=== PATIENT | female | born 1980 ===

== ENCOUNTER 2017-06-01 09:17 | Emergency (ER) | payer OTHER, SELFPAY ==
[2017-06-01 09:32] VITALS: BMI 29.2
[2017-06-01 09:33] VITALS: BP 127/70; PULSE 107; RESP 16; TEMP 98.6; O2SAT 100
[2017-06-01] MEDS ORDERED: Sodium Chloride 0.9% 1,000 ML IV STA (10:09)
--- NOTE | 2017-06-01 10:47 | ED PDOC ---
HPI: Abdomen Time Seen by Provider: 06/01/17 09:55 Chief Complaint (Nursing): Abdominal Pain Chief Complaint (Provider): Abdominal Pain History Per: Patient History/Exam Limitations: no limitations Current Symptoms Are (Timing): Still Present Additional Complaint(s): 37 year old female presents to the emergency department with a complaint of a right lower abdominal pain that is non radiating that started last night, 2017, around 2200. Describe pain was severe at first and slowly got getter although today around 7am pain returned. Reports taking Tylenol with the relief of pain with nausea and chills. States she feels like she wants to defecate but nothing comes out when she tries. Denies fever, diarrhea, urinary symptoms or loss of appetite. Patient is and last known menstrual period was on 2016. Past Medical History Reviewed: Historical Data, Nursing Documentation, Vital Signs Vital Signs: Last Vital Signs Temp 98.6 F 06/01/17 09:32 Pulse 107 H 06/01/17 09:32 Resp 16 06/01/17 09:32 BP 127/70 06/01/17 09:32 Pulse Ox 100 06/01/17 14:05 - Medical History PMH: Migraine - Surgical History Surgical History: Other surgeries: IUD in place - Family History Family History: States: No Known Family Hx - Social History Current smoker - smoking cessation education provided: No Alcohol: Occasional Drugs: Denies - Home Medications Home Medications: Ambulatory Orders Medication Instructions Recorded No122/Iron/Folic Acid 1 each PO DAILY #30 tablet 12/04/15 [ Multi Tablet] Ibuprofen [Motrin] 600 mg PO Q6 PRN #30 tab 06/16/16 oxyCODONE/Acetaminophen [Percocet 1 tab PO Q6 PRN #30 tab 06/16/16 5/325 mg Tab] Famotidine [Pepcid] 20 mg PO BID #28 tab 06/01/17 Naproxen [Naprosyn] 500 mg PO BID PRN #20 tablet 06/01/17 - Allergies Allergies/Adverse Reactions: Allergies Allergy/AdvReac Type Severity Reaction Status Date / Time No Known Allergies Allergy Verified 12/03/15 22:39 Review of Systems ROS Statement: Except As Marked, All Systems Reviewed And Found Negative (As per HPI, otherwise negative) Constitutional: Positive for: Chills. Negative for: Fever, Other (loss of appetite) Gastrointestinal: Positive for: Nausea, Abdominal Pain (RLQ). Negative for: Diarrhea Genitourinary Female: Negative for: Dysuria, Frequency, Incontinence, Hematuria Physical Exam - Reviewed Nursing Documentation Reviewed: Yes Vital Signs Reviewed: Yes - Physical Exam Appears: Positive for: Non-toxic, Uncomfortable (Moderate discomfort) Head Exam: Positive for: NORMAL INSPECTION, NORMOCEPHALIC Skin: Positive for: Normal Color, Warm, Dry Neck: Positive for: Normal, Supple Cardiovascular/Chest: Positive for: Regular Rate, Rhythm (Normal S1 S2) Respiratory: Positive for: Normal Breath Sounds. Negative for: Accessory Muscle Use, Respiratory Distress Gastrointestinal/Abdominal: Positive for: Soft, Tenderness (RLQ with mild tenderness to the LLQ). Negative for: Distended, Rebound Back: Positive for: R CVA Tenderness. Negative for: Normal Inspection, L CVA Tenderness Extremity: Positive for: Normal ROM. Negative for: Pedal Edema Neurologic/Psych: Positive for: Alert, Oriented (x3) - Laboratory Results Result Diagrams: 06/01/17 10:52 06/01/17 10:52 - ECG O2 Sat by Pulse Oximetry: 100 (RA) Pulse Ox Interpretation: Normal Medical Decision Making Medical Decision Making: Time: 1006 Initial Impression: Right lower quadrant differential diagnosis include urinary tract infection (UTI), tubo-ovarian, and appendicitis Initial Plan: --CMP --Urine DIP & Preg --CBC w/ diff --Toradol 30 mg IV --Sodium Chloride 1L IV --Urinalysis --Pelvis US --Reevaluation Time: 1208 --Pelvis US FINDINGS: Examination limited by shadowing. UTERUS: Measures 10.7 x 4.0 x 5.1 cm. Anteverted. ENDOMETRIUM: Measures 7 mm in diameter. Limited visualization of the IUD appears in satisfactory position. CERVIX: No cervical abnormality identified. RIGHT OVARY: Measures 5.0 x 3.9 x 4.9 cm. Blood flow is demonstrated. 2.9 x 2.4 x 3.2 cm right ovarian follicle/cyst. LEFT OVARY: Measures 3.9 x 2.7 x 4.7 cm cm. Blood flow is demonstrated. FREE FLUID: No significant free fluid noted. OTHER FINDINGS: None. IMPRESSION: Limited visualization of the IUD appears in satisfactory position. 2.9 x 2.4 x 3.2 cm right ovarian follicle/cyst. Scribe~Attestation: Documented by Yamilet Pearson, acting as a scribe for Allison Velasquez MD. Provider Scribe~Attestation: All medical record entries made by the Scribe were at my direction and personally dictated by me. I have reviewed the chart and agree that the record accurately reflects my personal performance of the history, physical exam, medical decision making, and the department course for this patient. I have also personally directed, reviewed, and agree with the discharge instructions and disposition. Disposition - Clinical Impression Clinical Impression: Right ovarian cyst - Patient ED Disposition Is Patient to be Admitted: No Doctor Will See Patient In The: Office Counseled Patient/Family Regarding: Diagnosis, Need For Followup, Rx Given - Disposition Disposition: Routine/Home Disposition Time: 14:08 Condition: IMPROVED Prescriptions: Famotidine [Pepcid] 20 mg PO BID #28 tab Naproxen [Naprosyn] 500 mg PO BID PRN #20 tablet PRN Reason: Pain, Moderate (4-7) Instructions: Ovarian Cyst (ED) Forms: [employer] (Tongan) Print Language: ROMANIAN - POA Present On Arrival: None
[2017-06-01 10:56] LABS: BASO # 0.1 K/uL (0.0-0.2); BASO % 0.6 % (0.0-2.0); EOS # 0.1 K/uL (0.0-0.7); EOS % 0.9 % (0.0-4.0); HEMOGLOBIN 12.6 g/dL (12.0-16.0); LYMPH # 2.3 K/uL (1.0-4.3); LYMPH % 26.1 % (20.0-40.0); MEAN CELL VOLUME 83.1 fl (81.0-99.0); MEAN CORPUSCULAR HEMOGLOBIN 28.5 pg (27.0-31.0); MEAN CORPUSCULAR HGB CONC 34.3 g/dL (33.0-37.0); MEAN PLATELET VOLUME 6.7 fl (7.2-11.7); MONO # 0.4 K/uL (0.0-0.8); MONO % 4.7 % (0.0-10.0); NEUT % 67.7 % (50.0-75.0); RBC 4.42 Mil/uL (3.80-5.20); RED CELL DISTRIBUTION WIDTH 12.4 % (11.5-14.5); WHITE BLOOD COUNT 8.8 K/uL (4.8-10.8)
[2017-06-01 11:06] LABS: ALB/GLOB RATIO 1.3 (1.0-2.1); ALBUMIN 4.1 g/dL (3.5-5.0); ALT/SGPT 35 U/L (9-52); AST/SGOT 27 U/L (14-36); BLOOD UREA NITROGEN 10 mg/dl (7-17); CALCIUM 9.4 mg/dL (8.4-10.2); GFR AFRICAN-AMERICAN > 60; GFR NON-AFRICAN AMERICAN > 60; SQUAMOUS EPITHIAL 2 /hpf (0-5); URINE BILIRUBIN NEGATIVE (NEGATIVE); URINE BLOOD SMALL (NEGATIVE); URINE CLARITY SLIGHTY-CLOUDY (Clear); URINE COLOR YELLOW (YELLOW); URINE GLUCOSE (UA) NEG (Normal); URINE LEUKOCYTE ESTERASE NEG Leu/uL (Negative); URINE NITRATE NEGATIVE (NEGATIVE); URINE PROTEIN NEGATIVE (NEGATIVE); URINE UROBILINOGEN 0.2-1.0 mg/dL (0.2-1.0)
--- NOTE | 2017-06-01 12:09 | US ---
HISTORY: RLQ pain COMPARISON: None available. TECHNIQUE: Transabdominal pelvic ultrasound FINDINGS: Examination limited by shadowing. UTERUS: Measures 10.7 x 4.0 x 5.1 cm. Anteverted. ENDOMETRIUM: Measures 7 mm in diameter. Limited visualization of the IUD appears in satisfactory position. CERVIX: No cervical abnormality identified. RIGHT OVARY: Measures 5.0 x 3.9 x 4.9 cm. Blood flow is demonstrated. 2.9 x 2.4 x 3.2 cm right ovarian follicle/cyst. LEFT OVARY: Measures 3.9 x 2.7 x 4.7 cm cm. Blood flow is demonstrated. FREE FLUID: No significant free fluid noted. OTHER FINDINGS: None. IMPRESSION: Limited visualization of the IUD appears in satisfactory position. 2.9 x 2.4 x 3.2 cm right ovarian follicle/cyst.
== END 2017-06-01 14:45 | disposition home or self-care (01) ==
LOC: H.ER 09:17
DX: N83.201 Unspecified ovarian cyst, right side (principal)
CPT/HCPCS: 76856; 80053; 81003; 81025; 85025; 99283; J1885; J7040